=== PATIENT | female | born 1985 | race Caucasian/White ===

== ENCOUNTER 2018-08-14 17:30 | Outpatient (CLI) | payer MEDICARE | END 2018-08-14 17:31 | disposition EMS.NT | LOC: EMS 17:30 | PROVIDERS: ATTEND Surgery | DX: S61.552A Open bite of left wrist, initial encounter (principal); W54.0XXA Bitten by dog, initial encounter; Y92.009 Unspecified place in unspecified non-institutional (private) residence as the place of occurrence of the external cause ==

== ENCOUNTER 2018-08-14 18:13 | Emergency (ER) | payer MEDICARE ==
[2018-08-14 18:27] VITALS: BP 134/90
[2018-08-14] MEDS ORDERED: BACITRACIN OINT TOP STA (19:12)
[2018-08-14] MEDS ORDERED: CLINDAMYCIN 150 MG CAPSULE PO STA (19:13)
--- NOTE | 2018-08-14 19:42 | ED Physician Documentation ---
PD HPI ANIMAL BITE - Stated complaint Stated Complaint: DOG BITE LT ARM - Chief complaint Chief Complaint: Wound - History obtained from History obtained from: Patient - History of Present Illness Location of injury(ies): Other (left wrist) Details of the event: Dog, Immunized Timing - onset: How many hours ago (1) Timing - duration: Hours (1) Timing - details: Abrupt onset Pain level max: 4 Pain level now: 2 Improved by: Rest Worsened by: Moving, Palpating Associated symptoms: No: Weakness, Numbness, Tingling, Swelling Contributing factors: No: Immunocompromised, Asplenic Similar symptoms before: Has not had sx before Recently seen: Not recently seen - Additional information Additional information: Td UTD. Review of Systems Constitutional: denies: Fever, Chills Throat: denies: Sore throat Respiratory: denies: Dyspnea, Cough GI: denies: Vomiting, Diarrhea Skin: denies: Rash PD PAST MEDICAL HISTORY - Past Medical History Past Medical History: Yes : Other - Past Surgical History Past Surgical History: Yes - Present Medications Home Medications: Ambulatory Orders Medication Instructions Recorded Confirmed Clindamycin HCl [Clindamycin 300MG 300 mg PO Q6H #28 capsule 08/14/18 CAP] - Allergies Allergies/Adverse Reactions: Allergies Allergy/AdvReac Type Severity Reaction Status Date / Time iodine Allergy Hives Verified 08/14/18 18:27 Penicillins Allergy Hives Verified 08/14/18 18:27 vancomycin Allergy Unknown Verified 08/14/18 18:27 - Social History Does the pt smoke?: No Smoking Status: Never smoker PD ED PE NORMAL - Vitals Vital signs reviewed: Yes - General General: Alert and oriented X 3, No acute distress - HEENT HEENT: Moist mucous membranes - Neck Neck: Supple, no meningeal sign - Cardiac Cardiac: RRR - Respiratory Respiratory: No respiratory distress, Clear bilaterally - Abdomen Abdomen: Soft, Non tender, Non distended - Derm Derm: Warm and dry - Extremities Extremities: Other (multiple small lacerations to the L hand and wrist. swellling to the wrist as well. NVI.) - Neuro Neuro: Alert and oriented X 3 Results - Vitals Vitals: Vital Signs - 24 hr 08/14/18 18:20 Temperature 36.4 C L Heart Rate 78 Respiratory 18 Rate Blood Pressure 134/90 H O2 Saturation 100 - Rads (name of study) L wrist xray Radiology: Prelim report reviewed, EMP read contemporaneously, See rad report (no bony abnormality.) PD MEDICAL DECISION MAKING - ED course Complexity details: reviewed results, re-evaluated patient, considered differential, d/w patient, d/w family ED course: Patient with a dog bite to the left wrist. She is allergic to penicillin, placed on clindamycin. Wounds were cleansed and bandaged. None require suturing. Tetanus is up-to-date. Warnings of infection and instructions on wound care given at bedside. Also counseled on how to minimize scarring. Patient counseled regarding signs and symptoms for which I believe and urgent re-evaluation would be necessary. Patient with good understanding of and agreement to plan and is comfortable going home at this time This document was made in part using voice recognition software. While efforts are made to proofread this document, sound alike and grammatical errors may occur. Departure - Departure Disposition: 01 Home, Self Care Clinical Impression: Dog bite Qualifiers: Encounter type: initial encounter Qualified Code(s): W54.0XXA - Bitten by dog, initial encounter Condition: Good Instructions: ED Bite Animal General Follow-Up: your,doctor in 4 days for wound check [Other] Prescriptions: Clindamycin HCl [Clindamycin 300MG CAP] 300 mg PO Q6H #28 capsule Comments: Take all antibiotics until gone. Return if you worsen. Return especially for redness, swelling or drainage from the wound. Discharge Date/Time: 08/14/18 19:57
--- NOTE | 2018-08-14 19:47 | XRAY Report ---
Reason: L wrist pain s/p dog bite Procedure Date: 08/14/2018 Accession Number: [id number] / [id number] Procedure: XR - Wrist 4 View LT CPT Code: FULL RESULT: EXAM: LEFT WRIST RADIOGRAPHY EXAM DATE: 08/14/2018 07:31 PM. CLINICAL HISTORY: L wrist pain s/p dog bite. COMPARISON: None. TECHNIQUE: 3 views. FINDINGS: Bones: Normal. No fractures or bone lesions. Joints: Normal. No subluxations. Soft Tissues: Moderate soft tissue swelling of left wrist. IMPRESSION: Moderate soft tissue swelling of left wrist. No acute osseous abnormality. [facility]
[2018-08-14] MEDS: HYDROmorphone 2 MG TABLET PO STA ×2 (19:48→19:51)
== END 2018-08-14 19:57 | disposition home or self-care (01) ==
LOC: ED 18:13
DX: S61.552A Open bite of left wrist, initial encounter (principal); W54.0XXA Bitten by dog, initial encounter; Z88.0 Allergy status to penicillin
CPT/HCPCS: 73110; 99283; A9270